=== PATIENT | female | born 1990 | race Caucasian/White ===

== ENCOUNTER 2018-05-04 22:34 | Outpatient (CLI) | payer MEDICAID ==
[~2018-05-04] VITALS: Ht 160 cm; Wt 100.0 kg
[~2018-05-04 22:34] MED LIST: FERROUS SULFATE65 MG PO; MOTRIN 600600 MG/TAB PO; PERCOCET 325 MG1 TA2 PO; PRENATAL1 TA1 PO
[2018-05-04 23:00] VITALS: BP 128/77; PULSE 100; TEMP 98.7
== END 2018-05-05 00:15 | disposition home or self-care (01) ==
LOC: LDRO 22:34
DX: O42.92 Full-term premature rupture of membranes, unspecified as to length of time between rupture and onset of labor (principal); Z3A.38 38 weeks gestation of pregnancy

== ENCOUNTER 2018-05-12 15:08 | Inpatient (IN) | payer MEDICAID ==
[~2018-05-12] VITALS: Ht 160 cm; Wt 100.5 kg
[2018-05-12] VITALS (43 sets, daily range): BP systolic 76–120; BP diastolic 38–70; PULSE 67–125; TEMP 97.4–97.9
[2018-05-12 17:58] LABS: BASO % 0.4 % (0.0-2.0); EOS # 0.1 (0.0-0.7); EOS % 0.5 % (0-4.0); GRAN # 7.1 (1.4-6.5); GRAN % 74.5 % (42.2-75.2); HEMOGLOBIN 11.7 g/dl (12.5-16.0); LYMPH # 1.5 (1.2-3.4); LYMPH % 15.6 % (20.0-51.0); MEAN CELL VOLUME 92 fl (80.0-100.0); MEAN CORPUSCULAR HEMOGLOBIN 31 pg (27.0-31.0); MEAN CORPUSCULAR HGB CONC 33 g/dl (33.0-37.0); MEAN PLATELET VOLUME 12.3 fl (7.4-10.4); MONO # 0.8 (0.1-0.6); MONO % 8.2 % (1.7-9.3); PLATELET COUNT 166 K/mm3 (130-400); RED BLOOD COUNT 3.82 M/mm3 (4.10-5.30); REDCELL DISTRIBUTION WIDTH-CV 13.8 % (11.5-14.5)
[2018-05-13] VITALS (24 sets, daily range): BP systolic 90–112; BP diastolic 52–69; PULSE 80–126; TEMP 97.4–98.1
[2018-05-14 07:50] LABS: HEMATOCRIT 30.6 % (37.0-47.0); HEMOGLOBIN 9.9 g/dl (12.5-16.0)
[2018-05-14] MEDS ORDERED: MOTRIN 600600 MG/TAB PO (09:22)
[2018-05-14] MEDS ORDERED: PERCOCET 325 MG1 TA2 PO (09:22)
[2018-05-14 10:15] VITALS: BP 112/65; PULSE 94; TEMP 97.5
== END 2018-05-14 15:45 | disposition home or self-care (01) | DRG 807 ==
LOC: LDRO 15:08 → LDR 15:10 → LDRO 17:26 → OB 17:26
PROVIDERS: Obstetrics & Gynecology
PROC: 10E0XZZ Delivery of Products of Conception, External Approach (ICD-10-PCS; principal; 2018-05-13)
DX: O34.211 Maternal care for low transverse scar from previous cesarean delivery (principal); Z37.0 Single live birth; Z3A.39 39 weeks gestation of pregnancy; O99.214 Obesity complicating childbirth
CPT/HCPCS: J2590; J7120

== ENCOUNTER 2023-12-17 10:08 | Inpatient (IN) | payer BC, MEDICAID ==
[~2023-12-17] VITALS: Ht 160 cm; Wt 122.1 kg
[2023-12-17 12:15] LABS: COLLECTION METHOD CLEAN CATCH
[2023-12-17 12:26] LABS: URINE APPEARANCE CLEAR (CLEAR/HAZY); URINE BLOOD NEGATIVE (NEGATIVE); URINE COLOR YELLOW (YELLOW); URINE GLUCOSE NEGATIVE (NEGATIVE); URINE KETONE 2+ (NEGATIVE); URINE NITRATE NEGATIVE (NEGATIVE); URINE PROTEIN(semi-quant) 1+ (NEGATIVE)
[2023-12-17] MEDS ORDERED: NS 1,000 ML IV ONE (12:30)
[2023-12-17] MEDS ORDERED: HYDROmorphone 0.5 MG/0.5 ML SYRINGE IV ONE (12:30)
[2023-12-17 12:55] LABS: BASO # 0.1 K/mm3 (0.0-0.2); BASO % 1.2 % (0.0-2.0); EOS % 0.1 % (0.0-4.0); GRAN # 4.3 K/mm3 (1.4-6.5); GRAN % 64.1 % (42.2-75.2); HEMATOCRIT 37.6 % (37.0-47.0); HEMOGLOBIN 12.6 g/dl (12.5-16.0); LYMPH # 1.3 K/mm3 (1.2-3.4); LYMPH % 19.4 % (20.0-51.0); MEAN CELL VOLUME 83 fl (80.0-100.0); MEAN CORPUSCULAR HEMOGLOBIN 28 pg (27-31); MEAN CORPUSCULAR HGB CONC 34 g/dl (33.0-37.0); MEAN PLATELET VOLUME 11.2 fl (7.4-10.4); PLATELET COUNT 196 K/mm3 (130-400); RED BLOOD COUNT 4.51 M/mm3 (4.10-5.30); REDCELL DISTRIBUTION WIDTH-CV 14.2 % (11.5-14.5)
[2023-12-17 13:14] LABS: ALBUMIN 2.7 g/dL (3.5-5.0); ALKALINE PHOSPHATASE 57 U/L (40-150); ANION GAP 11 mmol/L (7-16); AST,SGOT 9 U/L (5-34); BILIRUBIN,TOTAL 0.4 mg/dL (0.2-1.2); BLOOD UREA NITROGEN 6 mg/dL (7-19); C-REACTIVE PROTEIN 23.08 mg/dL (0.00-0.50); CHLORIDE 104 mEq/L (98-107); CREATININE, serum 0.75 mg/dL (0.57-1.11); GLUCOSE 117 mg/dL (70-99); SODIUM 137 mEq/L (136-145); TOTAL PROTEIN 7.5 g/dl (6.2-8.1)
[2023-12-17 13:16] LABS: ALANINE AMINOTRANSFERASE < 6 U/L (0-55)
[2023-12-17 13:17] LABS: POTASSIUM 2.6 mEq/L (3.5-4.5)
[2023-12-17 13:23] LABS: TROPONIN-I < 0.010 ng/mL (0.00-0.033)
[2023-12-17] MEDS ORDERED: Potassium Chloride 100 ML IV ONE (13:30)
[2023-12-17] MEDS ORDERED: NS 100 ML IV SCH (13:47)
[2023-12-17] MEDS ORDERED: Iohexol 350 - 100 ML VIAL IV ONE (13:47)
--- NOTE | 2023-12-17 15:43 | NUR ---
Patient to room 359 from the ED by wheelchair. A&Ox4. VSS. IV CDI, fluids infusing. Independent with ambulation. Nurse oriented the patient to location, room and call light. No further needs expressed. Call light within reach
[2023-12-17 16:43] VITALS: BP 108/64; PULSE 124; TEMP 98.1
[2023-12-17] MEDS ORDERED: Docusate Sodium 100 MG CAP PO PRN (18:45)
[2023-12-17] MEDS ORDERED: Ondansetron 4 MG/2 ML VIAL IV PRN (18:45)
[2023-12-17] MEDS ORDERED: NS 1,000 ML IV SCH (18:45)
[2023-12-17] MEDS ORDERED: Acetaminophen 325 MG TAB PO PRN (18:45)
[2023-12-17] MEDS ORDERED: Polyethylene Glycol 3350 17 GM PDS PO PRN (18:45)
[2023-12-17] MEDS ORDERED: Potassium Bicarbonate/Citrate 20 MEQ Effervescent TAB PO SCH ×2 (19:00→22:00)
[2023-12-17] MEDS ORDERED: *Potassium Replacement Protocol MC SCH ×2 (19:00→22:00)
[2023-12-17 19:16] VITALS: BP 110/66; PULSE 130; TEMP 98.3
[2023-12-17 21:00] VITALS: BP_SYST 110
[2023-12-17] MEDS ORDERED: Vancomycin 1.5 GM,Special Dose/Pharmacy Prepared 1.5 GM in NS 250 ML IV ONE (21:15)
--- NOTE | 2023-12-17 21:27 | NUR ---
Hospitalist called for critical potassium of 2.8. New orders recieved.
--- NOTE | 2023-12-17 22:11 | NUR ---
33 yo female admitted for further care and management of sepsis likely secondary to possible necrotizing pneumonia. ht 160 cm wt 122.1 kg (adj wt 80.3 kg) SCr 0.75 with estimated CrCl >60 ml/min half life 9.3 hours Plan: Patient may not follow population based kinetics secondary to body habitus (BMI 47.7 kg/m2). Patient received an initial loading dose of vancomycin 1000 mg x1 in the ED; will give a supplemental loading dose of vancomycin 1500 mg for a total loading dose of 2500 mg (20.5 mg/kg); followed by a maintenance regimen of vancomycin 1000 mg q8h to target a goal trough of 15-20 mcg/ml. Will follow patient's renal function, micro data, and vancomycin levels as indicated to assess for any necessary changes to the regimen. Thank you for this dosing consult.
--- NOTE | 2023-12-17 22:30 | NUR ---
Patient resting in bed. Assissted patient to bathroom and back to bed. Recieved a call from tele stating patients heart rate was in 150s. Hospitalist Verónica notified and new orders recieved. Assessment complete. IV in right AC infusing with no complications. States she has some pain in her right mid back aobut where her lower lobe is, denies need for pain meds at this time. Call light and personal items in reach. Bed in low position.
[2023-12-18] VITALS (10 sets, daily range): BP systolic 101–115; BP diastolic 54–78; PULSE 105–123; TEMP 97.7–98.5
--- NOTE | 2023-12-18 00:38 | NUR ---
E-pharmacy called to clarify scheduled vanco times. Pharmacist notified that previous 1.5g vanco had just finished about midnight and the patient had a scheduled 1g dose of vanco at 0030. Pharmacist stated he would push that dose back about 4 hours.
--- NOTE | 2023-12-18 06:55 | NUR ---
awake resting in bed, bedside shift report received from WALTER Tolentino
--- NOTE | 2023-12-18 07:20 | NUR ---
Patient resting in bed. States she has some pain in her right mid back, prn tylenol given. Denies any needs at this time. Lab drawn by this nurse at this time for potassium recheck and morning labs. Patients heart rate would spike up to 150s when getting up to the bathroom overnight. Hospitalist notified and EKG orders recieved. Patient was asymptomatic to the elevated heart rate. No other changes over night. Call light and personal items in reach. Bed in low position.
[2023-12-18 08:26] LABS: HEMOGLOBIN 11.1 g/dl (12.5-16.0); MEAN CELL VOLUME 85 fl (80.0-100.0); MEAN CORPUSCULAR HEMOGLOBIN 28 pg (27-31); MEAN CORPUSCULAR HGB CONC 33 g/dl (33.0-37.0); PLATELET COUNT 194 K/mm3 (130-400); RED BLOOD COUNT 3.98 M/mm3 (4.10-5.30); REDCELL DISTRIBUTION WIDTH-CV 14.6 % (11.5-14.5)
[2023-12-18 08:27] LABS: HEMATOCRIT 33.9 % (37.0-47.0)
[2023-12-18 08:35] LABS: ANION GAP 9 mmol/L (7-16); C-REACTIVE PROTEIN 19.19 mg/dL (0.00-0.50); CHLORIDE 107 mEq/L (98-107); CREATININE, serum 0.64 mg/dL (0.57-1.11); GLUCOSE 96 mg/dL (70-99); POTASSIUM 3.5 mEq/L (3.5-4.5); SODIUM 139 mEq/L (136-145)
[2023-12-18 08:36] LABS: BLOOD UREA NITROGEN < 5 mg/dL (7-19)
--- NOTE | 2023-12-18 08:45 | NUR ---
resting in bed ready to order breakfast, full assessment completed, see intervenitons for further info
[2023-12-18] MEDS ORDERED: *Potassium Replacement Protocol MC SCH (09:00)
[2023-12-18] MEDS ORDERED: Potassium Bicarbonate/Citrate 20 MEQ Effervescent TAB PO SCH (09:00)
[2023-12-18 09:46] LABS: BAND 2 % (0-10); EOSINOPHIL 3 % (0-4); LYMPHOCYTE 40 % (20.0-51.0); NEUTROPHILS 50 % (42.0-75.2)
[2023-12-18 09:47] LABS: PLATELET ESTIMATE NORMAL (NORMAL)
--- NOTE | 2023-12-18 10:00 | NUR ---
had breakfast and tolerated well, resting in bed without co/os
--- NOTE | 2023-12-18 11:57 | NUR ---
C/O BACK PAIN/DISCOMFORT AND MEDICATED WITH TYLENOL 650MG PO
--- NOTE | 2023-12-18 13:43 | NUR ---
appears to be dozing, arouses easily, up to bathroom independently and then back to bed
--- NOTE | 2023-12-18 14:00 | NUR ---
appears to be dozing, in bed with lights off, eyes closed, resp quiet and easy
--- NOTE | 2023-12-18 15:15 | NUR ---
Pressroom Foreman met with patient to discuss discharge planning. Patient lives in [place] with her , Parish (ph#[phone]) and four children. 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 Patient patient is independent with ADLS and does not use any DME. Patient's preferred pharmacy is [facility]. Patient does not have DPOA-HC and is not interested in creating one at this time. Discharge Plan; Home
--- NOTE | 2023-12-18 17:36 | NUR ---
IV fluids discontinued per order, has ordered supper
--- NOTE | 2023-12-18 17:58 | NUR ---
sitting up in bed having supper
--- NOTE | 2023-12-18 18:58 | NUR ---
bedside shift report given to WALTER Berumen
[2023-12-19 00:11] VITALS: BP 121/80; PULSE 105; TEMP 98.1
[2023-12-19 04:35] VITALS: BP 120/79; PULSE 113; TEMP 98.3
[2023-12-19 06:41] LABS: HEMOGLOBIN 11.1 g/dl (12.5-16.0); MEAN CELL VOLUME 83 fl (80.0-100.0); MEAN CORPUSCULAR HEMOGLOBIN 28 pg (27-31); MEAN CORPUSCULAR HGB CONC 33 g/dl (33.0-37.0); MEAN PLATELET VOLUME 11.6 fl (7.4-10.4); PLATELET COUNT 200 K/mm3 (130-400); RED BLOOD COUNT 4.02 M/mm3 (4.10-5.30); REDCELL DISTRIBUTION WIDTH-CV 14.8 % (11.5-14.5)
[2023-12-19 06:44] LABS: HEMATOCRIT 33.4 % (37.0-47.0)
[2023-12-19 07:13] LABS: CALCIUM 8.4 mg/dL (8.4-10.2); CREATININE, serum 0.65 mg/dL (0.57-1.11); POTASSIUM 3.6 mEq/L (3.5-4.5)
[2023-12-19 08:20] VITALS: BP 125/80; PULSE 115; TEMP 98.3
[2023-12-19] MEDS ORDERED: AMOXICILLIN 8751 TAB PO (09:00)
[2023-12-19] MEDS ORDERED: Potassium Bicarbonate/Citrate 20 MEQ Effervescent TAB PO SCH (09:00)
[2023-12-19 09:02] LABS: BAND 2 % (0-10); EOSINOPHIL 6 % (0-4); LYMPHOCYTE 27 % (20.0-51.0); NEUTROPHILS 49 % (42.0-75.2); PLATELET ESTIMATE NORMAL (NORMAL)
--- NOTE | 2023-12-19 09:08 | NUR ---
VINNY met with patient briefly to inquire about PCP. She reports that she sees Dr. Sharma at [facility]. Discharge Plan: Home
--- NOTE | 2023-12-19 10:43 | NUR ---
PATIENT GIVEN DISCHARGE INSTRUCTIONS AND EDUCATION. IV AND TELE REMOVED. CELENA HAS TWO FAMILY MEMBERS AT BEDSIDE. BARBARA AWARE OF NEEDED FOLLOW UP AND WAS EDUCATED ON HER NEW MEDICATION. PATEINT DENIES ANY FURTHER QUESTIONS.
--- NOTE | 2023-12-19 10:44 | NUR ---
PATIENT TAKENT TO [facility] WHERE SHE LEFT IN STABLE CONDITION WITH HER FAMILY
--- NOTE | 2023-12-19 11:02 | NUR ---
Initial visit; Patient, her mother and guest were present when [employer] let Kaylee know of the availability of [facility] at our hospital. Kaylee declined but thanked [employer] for stopping.
== END 2023-12-19 10:45 | disposition home or self-care (01) | DRG 872 ==
LOC: COL.ER 10:08 → MEDICAL 14:32
PROVIDERS: Internal Medicine Sleep Medicine; Nurse Practitioner; ADMIT Hospitalist
DX: A41.9 Sepsis, unspecified organism (principal); E87.6 Hypokalemia
CPT/HCPCS: J1170; J1650; J2543; J3370; J3480; J7030; J7050; Q9967